=== PATIENT | male | born 1970 | race Caucasian/White ===

== ENCOUNTER 2019-06-28 11:30 | Observation (INO) ==
[2019-06-28] MEDS ORDERED: BUMETANIDE 1 MG in SYRINGE 0 ML IV STA (12:21)
[2019-06-28 12:38] LABS: Basophils # (auto) 0.04 K/uL (0-0.2); Basophils % (auto) 0.6 %; Eosinophils # (auto) 0.22 K/uL (0-0.5); Eosinophils % (auto) 3.5 %; Hematocrit (blood only) 36.9 % (42-52); Hemoglobin 12.3 g/dL (14.0-18.0); Immature Granulocytes # (auto) 0.01 K/uL (0.00-0.02); Immature Granulocytes % (auto) 0.2 %; Lymphocytes # (auto) 0.88 K/uL (1.2-3.4); Lymphocytes % (auto) 14.1 %; Mean Corpuscular Hemoglobin 30.5 pg (25-34); Mean Corpuscular Hgb Conc 33.3 g/dL (32-36); Mean Corpuscular Volume 91.6 fL (80-100); Mean Platelet Volume 11.3 fL (7.4-10.4); Monocytes # (auto) 0.72 K/uL (0.11-0.59); Monocytes % (auto) 11.6 %; Neutrophils # (auto) 4.36 K/uL (1.4-6.5); Platelet Count 217 K/uL (130-400); RDW Coefficient of Variation 12.4 % (11.5-14.5); RDW Standard Deviation 41.8 fL (36.4-46.3); Red Blood Count 4.03 M/uL (4.7-6.1); White Blood Count 6.23 K/uL (4.8-10.8)
[2019-06-28 12:48] LABS: Alanine Aminotransferase 38 U/L (12-78); Albumin Level 3.7 gm/dl (3.4-5.0); Aspartate Aminotransferase 19 U/L (15-37); Blood Urea Nitrogen 12 mg/dl (7-18); Calcium 8.8 mg/dl (8.5-10.1); Carbon Dioxide 30 mmol/L (21-32); Chloride 105 mmol/L (98-107); Creatinine Clr Calc Pharmacy 125.5 ml/min; Est GFR (African American) 99.8; Est GFR (Non-African American) 86.1; Glucose 102 mg/dl (70-99); Potassium 4.4 mmol/L (3.5-5.1); Sodium 139 mmol/L (136-145)
[2019-06-28 12:59] LABS: Albumin Globulin Ratio 1.2 (0.9-2); Alkaline Phosphatase 76 U/L (45-117); Bilirubin,Total 0.6 mg/dl (0.2-1); Globulin 3.1 gm/dl (2.5-4.0); NT Pro B Type Natriuretic Pept 29 pg/ml (0-450); Total Protein 6.8 gm/dl (6.4-8.2); Troponin I < 0.015 ng/ml (0-0.045)
--- NOTE | 2019-06-28 13:19 | XRay Report ---
XR chest 1V portable CLINICAL HISTORY: SOB dyspnea COMPARISON STUDY: No previous studies for comparison. FINDINGS: The bones soft tissues and hemidiaphragms are normal. The cardiomediastinal silhouette is n ormal. The lungs are clear. The pulmonary vasculature is normal. IMPRESSION: Negative chest. The above report was generated using voice recognition software. It may contain grammatical, syntax or spelling errors. Electronically signed by: Rolando Abdul M.D. 06/28/2019 1:18 PM
--- NOTE | 2019-06-28 14:27 | Emergency Department Note ---
Entered by Hakan Swan acting as a scribe for History of Present Illness General Chief complaint: Chest Pain Time Seen by Provider: 06/28/19 12:08 Source: patient History of Present Illness Provider complaint: Shortness of breath Onset (ago): day(s) 5 Location: chest Severity: similar to prior episodes Pain Consistency: + constant and + intermittent Maximum Pain Intensity: 5 Current Pain Intensity: 5 Quality: + other (Swelling) Associated symptoms: + chest pain and + other (Lower extremity swelling) The patient is a 49 year old male who presents to the Emergency Room with complaints of constant shortness of breath that started about 5 days ago. The patient adds that with the shortness of breath he has some chest heaviness that he rates a 7/10 currently. The patient also has had increase swelling in his lower extremities for the past week. The patient has a history of fluid retention but has never had it this bad. The patient was brought to the ED from [facility] via EMS and en route he received Aspirin and Nitro which did not change his symptoms. The patient also received Bumex at the halfway after breakfast, but notes he has only urinated twice since taking it and his urine looked a normal color. The patient denies any history of HI or pulmonary disease. Home Medications Home Medications Medication Instructions Recorded Confirmed Type aspirin 81 mg tablet,delayed 81 mg PO QAM 10/26/18 06/28/19 History release atorvastatin 20 mg tablet 20 mg PO QPM 10/26/18 06/28/19 History albuterol sulfate 2 puff INHALATION TID PRN 06/28/19 06/28/19 History bumetanide 1 mg PO DAILY 06/28/19 06/28/19 History gabapentin 600 mg PO BID 06/28/19 06/28/19 History Allergies Allergy/AdvReac Type Severity Reaction Status Date / Time furosemide Allergy Unknown Unverified 06/28/19 13:42 guaifenesin Allergy Verified 02/28/19 13:40 lisinopril Allergy Unknown Unverified 06/28/19 13:42 nortriptyline Allergy Agitated Verified 02/28/19 13:40 pregabalin [From Lyrica] Allergy swelling Verified 02/28/19 13:40 Past Med/Surg History Medical History Asthma (Chronic) Migraine (Chronic) PTSD (post-traumatic stress disorder) (Chronic) Chronic pain (Chronic) HTN (hypertension) (Chronic) Gastro-esophageal reflux (Chronic) Cigarette smoker two packs a day or less (Chronic) Surgical History History of left knee surgery (Resolved) History of shoulder surgery (Resolved) Family History Other No pertinent family history in first degree relatives Social History Preferred Language: Georgian Visual Impairment: Limited Hearing Ability: Normal Beliefs That Will Affect Care: None Current Living Situation: Other Current Living Situation Comment: [facility] maciel inmate Feels Safe at Home: Yes Smoking Status: Former smoker Tobacco Type: cigarettes ; Cigarettes Per Day: 30 ; Review of Systems See HPI for pertinent positives & negatives. and A total of 10 systems reviewed and were otherwise negative Physical Exam Vital Signs Vital Signs - 24 hr 06/28/19 11:31 06/28/19 11:34 06/28/19 11:35 Temperature 36.7 C Temperature Source Oral Sepsis Recent Fever Within 48 Hours No Sepsis Action Taken by Nursing No Action Required Pulse Rate 83 83 88 Pulse Rate from SpO2 Sensor 83 86 Pulse Rhythm Regular Pulse Strength Normal Respiratory Rate 24 21 18 Respiratory Effort / Characteristics Non-Labored Spontaneous Respiratory Depth Normal Respiratory Pattern Regular Blood Pressure 140/83 140/83 Blood Pressure Mean 102 102 Pulse Oximetry 97 97 97 Oxygen Delivery Method Room Air 06/28/19 12:00 06/28/19 12:01 06/28/19 12:07 Temperature Temperature Source Sepsis Recent Fever Within 48 Hours Sepsis Action Taken by Nursing Pulse Rate 79 89 Pulse Rate from SpO2 Sensor 80 89 Pulse Rhythm Pulse Strength Respiratory Rate 15 9 L Respiratory Effort / Characteristics Respiratory Depth Respiratory Pattern Blood Pressure 133/69 Blood Pressure Mean 90 Pulse Oximetry 97 96 Oxygen Delivery Method Room Air 06/28/19 12:30 06/28/19 13:00 06/28/19 13:30 Temperature Temperature Source Sepsis Recent Fever Within 48 Hours Sepsis Action Taken by Nursing Pulse Rate 82 74 75 Pulse Rate from SpO2 Sensor 82 77 Pulse Rhythm Pulse Strength Respiratory Rate 16 12 17 Respiratory Effort / Characteristics Respiratory Depth Respiratory Pattern Blood Pressure 119/78 110/74 Blood Pressure Mean 91 86 Pulse Oximetry 97 100 Oxygen Delivery Method GENERAL: Patient is in no acute distress. HEENT: No acute trauma, normocephalic atraumatic, mucous membranes moist, no nasal congestion, no scleral icterus. NECK: No stridor, no adenopathy, no meningismus, trachea is midline. LUNGS: Diminished breath sounds bilaterally, no wheezes or rhonchi. HEART: Without murmurs gallops or rubs, regular rate and rhythm. ABDOMEN: Soft, nontender, bowel sounds positive, no hernias, no peritonitis. EXTREMITIES: Moderate bilateral pedal edema. No cyanosis, full range of motion of all the joints without pain or difficulty, no signs for acute trauma. NEUROLOGIC: Oriented x 3, no acute motor or sensory deficits, no focal weakness. SKIN: No rash, no jaundice, no diaphoresis. Course 1210: Past medical records reviewed. The patient was evaluated in room C08, and a complete history and physical examination were performed. I spoke to cardiology, Dr. Rankin, hospitalization was felt warranted. Further cardiac work-up was felt warranted I spoke to the patient and the halfway guards. I did speak with case management. The on-call hospitalist was consulted. Of note, the patient has diuresed significantly from the IV Bumex. Administered Medications Discontinued Medications Bumetanide 1 mg/ Syringe 4 mls @ 4 mls/min IV NOW STA Stop: 06/28/19 12:22 Last Admin: 06/28/19 13:14 Dose: 4 mls/min Documented by: [id number] Medical Decision Making Differential Diagnosis Differential Diagnosis includes: CHF, HI, angina, pneumonia, bronchitis, fluid overload, DVT, renal failure and liver failure, amongst others. Medical Records Attestation: I reviewed the patient's medical records. Home Medications Current Medication List: was personally reviewed by me Laboratory Data Attestation: I reviewed the patient's lab results. Result diagrams: 06/28/19 12:04 06/28/19 12:04 Lab Results 06/28/19 06/28/19 06/28/19 Range/Units 12:04 12:04 12:04 WBC 6.23 (4.8-10.8) K/uL RBC 4.03 L (4.7-6.1) M/uL Hgb 12.3 L (14.0-18.0) g/dL Hct 36.9 L (42-52) % MCV 91.6 (80-100) fL MCH 30.5 (25-34) pg MCHC 33.3 (32-36) g/dL RDW Std Deviation 41.8 (36.4-46.3) fL RDW Coeff of Roberto 12.4 (11.5-14.5) % Plt Count 217 (130-400) K/uL MPV 11.3 H (7.4-10.4) fL Immature Gran % (Auto) 0.2 % Neut % (Auto) 70.0 % Lymph % (Auto) 14.1 % [place] % (Auto) 11.6 % Eos % (Auto) 3.5 % Baso % (Auto) 0.6 % Immature Gran # (Auto) 0.01 (0.00-0.02) K/uL Neut # (Auto) 4.36 (1.4-6.5) K/uL Lymph # (Auto) 0.88 L (1.2-3.4) K/uL [place] # (Auto) 0.72 H (0.11-0.59) K/uL Eos # (Auto) 0.22 (0-0.5) K/uL Baso # (Auto) 0.04 (0-0.2) K/uL PT Cancelled INR Cancelled APTT Cancelled PTT Ratio Cancelled Sodium 139 (136-145) mmol/L Potassium 4.4 (3.5-5.1) mmol/L Chloride 105 (98-107) mmol/L Carbon Dioxide 30 (21-32) mmol/L Anion Gap 4.0 (3-11) BUN 12 (7-18) mg/dl Creatinine 1.03 (0.6-1.4) mg/dl Est Cr Clr Drug Dosing 125.5 ml/min Est GFR ( Amer) 99.8 Est GFR (Non-Af Amer) 86.1 BUN/Creatinine Ratio 12.0 (10-20) Glucose 102 H (70-99) mg/dl Calcium 8.8 (8.5-10.1) mg/dl Magnesium 2.0 (1.8-2.4) mg/dl Total Bilirubin 0.6 (0.2-1) mg/dl AST 19 (15-37) U/L ALT 38 (12-78) U/L Alkaline Phosphatase 76 (45-117) U/L Troponin I < 0.015 (0-0.045) ng/ml NT-Pro-B Natriuret Pep 29 (0-450) pg/ml Total Protein 6.8 (6.4-8.2) gm/dl Albumin 3.7 (3.4-5.0) gm/dl Globulin 3.1 (2.5-4.0) gm/dl Albumin/Globulin Ratio 1.2 (0.9-2) TSH 1.140 (0.300-4.500) uIu/ml Imaging Data Radiologist's Impression: Radiology results as stated below per my review and the radiologist's interpretation: XR chest 1V portable CLINICAL HISTORY: SOB dyspnea COMPARISON STUDY: No previous studies for comparison. FINDINGS: The bones soft tissues and hemidiaphragms are normal. The cardiomediastinal silhouette is normal. The lungs are clear. The pulmonary vasculature is normal. IMPRESSION: Negative chest. The above report was generated using voice recognition software. It may contain grammatical, syntax or spelling errors. Electronically signed by: Rolando Abdul M.D. 06/28/2019 1:18 PM US venous doppler LE BI HISTORY: Pain. Edema. edema COMPARISON STUDY: None. FINDINGS: There is normal compressibility, flow, and augmentation within the bilateral lower extremity deep venous systems. IMPRESSION: No DVT within the right or left lower extremity. The above report was generated using voice recognition software. It may contain grammatical, syntax or spelling errors. Electronically signed by: Rolando Abdul M.D. 06/28/2019 2:56 PM ECG Data Attestation: I personally reviewed and interpreted this ECG as follows: Indication: chest pain and SOB/dyspnea Rate (beats per minute): 87 Rhythm: normal sinus ECG Findings: Other (No ST elevation, No PACs or PVCs, QTC of 440. ) Blood Pressure Blood Pressure Findings: Normal blood pressure MDM Narrative There is no leukocytosis. A mild anemia was noted. The patient had a normal platelet count. There was no significant electrolyte abnormality or kidney failure. No evidence for liver enzyme elevation. The patient appeared to be in a euthyroid state. EKG showed a sinus rhythm, no acute ischemia. Cardiac enzyme testing x1 is not consistent with acute cardiac injury. BNP was not elevated making significant fluid overload/CHF less likely. Chest film did not show evidence for CHF or pneumonia. Bilateral lower extremity ultrasound did not show evidence for DVT. The patient was given IV Bumex, he did diurese nicely from this medication. No additional aspirin was given as he had received this in route. The patient does seem to be resting comfortably. He presents with precordial ch est pain and heaviness. He has been short of breath. I did discuss the case with cardiology, hospitalization for further cardiac work-up was felt warranted. I spoke to the patient and the halfway guards. Case management has been involved. The on-call hospitalist was consulted. At this point, the cause for the chest pain is not clear, further cardiac work-up is warranted. Impression & Plan Chest pain, precordial, Edema, SOB (shortness of breath) Discharge Plan Visit Data Chief Complaint: Chest Pain ED Provider: Bacilio Espinoza Discharge Problem: Chest pain, precordial, Edema, SOB (shortness of breath) Patient Disposition: Admitted As Inpatient Condition: Good Forms Stand Alone Forms: Call Back Authorization, [facility] Prescriptions Prescriptions: No Action aspirin [Adult Aspirin Regimen] 81 mg tablet,delayed release (DR/EC) 81 mg PO QAM RF: 0 atorvastatin 20 mg tablet 20 mg PO QPM RF: 0 gabapentin 600 mg Tablet 600 mg PO BID RF: 0 bumetanide 1 mg Tablet 1 mg PO DAILY RF: 0 albuterol sulfate 90 mcg/actuation Hfa Aerosol Inhaler 2 puff INHALATION TID PRN (Reason: Shortness Of Breath) RF: 0 Referrals Referrals: Michelle LEVI [Primary Care Provider] - Discharge Problem: Edema Qualifiers: Edema type: unspecified Qualified Code(s): R60.9 - Edema, unspecified The scribe's documentation has been prepared under my direction and personally reviewed by me in its entirety. I confirm that the note above accurately ref lects all work, treatment, procedures, and medical decision making performed by me.
--- NOTE | 2019-06-28 14:57 | Ultrasound Report ---
US venous doppler LE BI HISTORY: Pain. Edema. edema COMPARISON STUDY: None. FINDINGS: There is normal compressibility, flow, and augmentation within the bilateral lower extremit y deep venous systems. IMPRESSION: No DVT within the right or left lower extremity. The above report was generated using voice recognition software. It may contain grammatical, syntax or spelling errors. Electronically signed by: Rolando Abdul M.D. 06/28/2019 2:56 PM
--- NOTE | 2019-06-28 16:25 | History & Physical Report ---
Date of Service June 28, 2019 Assessment & Plan (1) Chest pain, precordial: We will follow chest pain protocol. Monitor EKG cardiac enzymes per protocol. Consult cardiology. Present on Admission?: Yes (2) Edema: Add IV Lasix. Check echocardiogram. Present on Admission?: Yes (3) SOB (shortness of breath): DuoNeb per protocol Present on Admission?: Yes (4) Asthma: Continue with home meds. (5) HTN (hypertension): Continue home meds. (6) Gastro-esophageal reflux: Add PPI for GI prophylaxis. (7) Chronic pain: Continue Neurontin. (8) DVT prophylaxis: Add subcu heparin for DVT prophylaxis History of Present Illness Chief Complaint: Chest pain and shortness of breath Primary Care Provider: AMITA Maciel The patient is a 49 year old male who presents to the Emergency Room with complaints of constant shortness of breath that started about 5 days ago. The patient adds that with the shortness of breath he has some chest heaviness that he rates a 7/10 currently. The patient also has had increase swelling in his lower extremities for the past week. The patient has a history of fluid retention but has never had it this bad. The patient was brought to the ED from [facility] via EMS and en route he received Aspirin and Nitro which did not change his symptoms. The [facility] also [facility], but notes he has only urinated twice since taking it and his urine looked a normal color. The patient denies any history of OK or pulmonary disease. The first set EKG and cardiac enzymes is negative. He will be admitted under observation for further evaluation and management. Allergies Allergy/AdvReac Type Severity Reaction Status Date / Time furosemide Allergy Unknown Unverified 06/28/19 13:42 guaifenesin Allergy Verified 02/28/19 13:40 lisinopril Allergy Unknown Unverified 06/28/19 13:42 nortriptyline Allergy Agitated Verified 02/28/19 13:40 pregabalin [From Lyrica] Allergy swelling Verified 02/28/19 13:40 Home Medications Home Medications Medication Instructions Recorded Confirmed Type aspirin 81 mg tablet,delayed 81 mg PO QAM 10/26/18 06/28/19 History release atorvastatin 20 mg tablet 20 mg PO QPM 10/26/18 06/28/19 History albuterol sulfate 2 puff INHALATION TID PRN 06/28/19 06/28/19 History bumetanide 1 mg PO DAILY 06/28/19 06/28/19 History gabapentin 600 mg PO BID 06/28/19 06/28/19 History Past Med/Surg History Medical History Asthma (Chronic) Migraine (Chronic) PTSD (post-traumatic stress disorder) (Chronic) Chronic pain (Chronic) HTN (hypertension) (Chronic) Gastro-esophageal reflux (Chronic) Cigarette smoker two packs a day or less (Chronic) Surgical History History of left knee surgery (Resolved) History of shoulder surgery (Resolved) Family History Other No pertinent family history in first degree relatives Social History Preferred Language: Urdu Visual Impairment: Limited Hearing Ability: Normal Beliefs That Will Affect Care: None Current Living Situation: Other Current Living Situation Comment: [facility]iel inmate Feels Safe at Home: Yes Smoking Status: Former smoker Tobacco Type: cigarettes ; Cigarettes Per Day: 30 ; Review of Systems Review of Systems: All systems reviewed & are unremarkable except as noted in HPI & below Constitutional: as per Subjective / HPI Eyes: as per Subjective / HPI Ear, Nose, Mouth, Throat: as per Subjective / HPI Respiratory: + cough, + chest congestion, + dyspnea and + dyspnea on exertion Cardiovascular: + chest pain, + chest pain at rest, + chest pain with activity, + dyspnea, + dyspnea at rest, + dyspnea on exertion, + orthopnea and + edema Physical Exam Physical Exam: GENERAL : No acute distress EYES: No icterus, gaze conjugate NOSE: No evidence of epistaxis MOUTH: No lesions or candidiasis, mucosa moist NECK: Supple LUNGS: CTA B/L, no wheezes, rales or rhonchi HEART: Regular, rate controlled ABDOMEN: Soft, NT, ND, BS Present EXTREMITIES: LE edema +, pedal pulses intact NEURO: A&OX3 Results & Data Vital Signs (Past 12 Hours) Vital Signs Temp Pulse Resp BP Pulse Ox 06/28/19 15:30 77 18 97 06/28/19 15:13 83 14 122/77 98 06/28/19 15:11 92 H 20 98 06/28/19 13:30 75 17 06/28/19 13:00 74 12 110/74 100 06/28/19 12:30 82 16 119/78 97 06/28/19 12:01 89 9 L 133/69 96 06/28/19 12:00 79 15 97 06/28/19 11:35 98.1 F 88 18 140/83 97 06/28/19 11:34 83 21 97 06/28/19 11:31 83 24 140/83 97 Laboratory Results 06/28/19 12:04 06/28/19 12:04 Diagnostic Findings XR chest 1V portable CLINICAL HISTORY: SOB dyspnea COMPARISON STUDY: No previous studies for comparison. FINDINGS: The bones soft tissues and hemidiaphragms are normal. The cardiomediastinal silhouette is normal. The lungs are clear. The pulmonary vasculature is normal. IMPRESSION: Negative chest. US venous doppler LE BI HISTORY: Pain. Edema. edema COMPARISON STUDY: None. FINDINGS: There is normal compressibility, flow, and augmentation within the bilateral lower extremity deep venous systems. IMPRESSION: No DVT within the right or left lower extremity. PG Care Time/CCT Total # of Minutes Spent Total Time Spent with Patient: Total time spent is greater than 50% in coordination of care (as documented) at patient's floor/unit and/or counseling patient: 60 m (1) Edema Edema type: unspecified Qualified Code(s): R60.9 - Edema, unspecified
[2019-06-28] MEDS ORDERED: MoRPHine SULFATE 2 MG/ML CARP IV PRN (18:35)
[2019-06-28] MEDS ORDERED: NITROGLYCERIN SL 0.4 MG/TAB TAB SL PRN (18:35)
[2019-06-28] MEDS: ALBUT/IPRATROP 3MG/0.5MG NEB 3 ML VIAL NEB SCH (19:43)
[2019-06-28] MEDS: NITROGLYCERIN 2% OINTMENT 30GM TUBE EXT SCH (20:15)
[2019-06-28] MEDS: GABAPENTIN 600 MG TAB PO SCH (20:16)
[2019-06-28] MEDS: PANTOprazole 40 MG TAB PO SCH (20:17)
[2019-06-28] MEDS ORDERED: ATORVASTATIN 20 MG TAB PO SCH (21:00)
[2019-06-28] MEDS ORDERED: ENOXAPARIN INJ 30 MG/0.3 ML SYR SQ SCH (21:00)
[2019-06-28 22:04] LABS: Appearance Urine Clear (Clear); Bilirubin Urine Negative (Negative); Blood Urine Negative (Negative); Color Urine Yellow; Glucose Urine UA Negative (Negative); Ketones Urine Negative (Negative); Leukocyte Esterase Urine Negative (Negative); Nitrite Urine Negative (Negative); Protein Urine Negative (Negative); Specific Gravity Urine 1.019 (1.000-1.030); Urobilinogen Urine Negative (Negative); pH Urine 8.5 (4.5-7.5)
[2019-06-29] MEDS ORDERED: ACETAMINOPHEN 325 MG TAB PO PRN (00:29)
[2019-06-29] MEDS: NITROGLYCERIN 2% OINTMENT 30GM TUBE EXT SCH ×2 (03:17→08:52)
[2019-06-29] MEDS: ALBUT/IPRATROP 3MG/0.5MG NEB 3 ML VIAL NEB SCH ×4 (07:14→18:49)
[2019-06-29] MEDS: GABAPENTIN 600 MG TAB PO SCH (08:51)
[2019-06-29] MEDS: PANTOprazole 40 MG TAB PO SCH (08:52)
[2019-06-29] MEDS ORDERED: ASPIRIN 81 MG ECTAB PO SCH (09:00)
[2019-06-29 09:26] LABS: Hematocrit (blood only) 35.3 % (42-52); Hemoglobin 12.2 g/dL (14.0-18.0); Mean Corpuscular Hemoglobin 31.2 pg (25-34); Mean Corpuscular Hgb Conc 34.6 g/dL (32-36); Mean Corpuscular Volume 90.3 fL (80-100); Mean Platelet Volume 10.4 fL (7.4-10.4); Platelet Count 213 K/uL (130-400); RDW Coefficient of Variation 12.5 % (11.5-14.5); RDW Standard Deviation 41.5 fL (36.4-46.3); Red Blood Count 3.91 M/uL (4.7-6.1); White Blood Count 7.14 K/uL (4.8-10.8)
--- NOTE | 2019-06-29 09:33 | Cardiology Consultation ---
Date of Consultation June 29, 2019 Assessment & Plan (1) Chest pain, precordial: (2) SOB (shortness of breath): (3) Dyslipidemia: (4) Edema: (5) HTN (hypertension): (6) Cigarette smoker two packs a day or less: ASSESSMENT/PLAN: 1. Chest pain: Not likely to be ischemic in origin as it has been present constantly for 1 week with negative cardiac enzymes. LV systolic function is not reduced. Recommend stress echo given risk factors, however this is not likely to be cardiac based on his description and lack of objective findings thus far. 2. Shortness of breath: Etiology uncertain. He does not appear to be in heart failure. His proBNP is only 29. No significant edema currently. No JVD. Stress echo as above. Other workup for shortness of breath as per primary service. 3. Hypertension: Blood pressure adequately controlled. 4. Dyslipidemia: Can continue home statin dose. 5. Tobacco abuse: Smoking cessation. 6. Edema: Only trace edema currently. May be due to significant sodium consumption. It was recommended that he stop adding salt to food and to reduce his overall sodium consumption. 7. Disposition: Plan of care discussed with Dr. Bell, other primary hospitalist service. Please call with any other questions or concerns. Stress echo pending. Thank you for allowing me to participate in the care of your patient. Please call for any other questions or concerns. Sincerely, Oscar Rankin M.D. History of Present Illness Reason for Consultation: Chest pain and shortness of breath Requesting Physician: Dr. Martinez Attending Physician: Ronaldo Harris History of Present Illness Mr. De La Paz is a pleasant 49-year-old gentleman who resides at [facility] and has a history of PTSD, hypertension, dyslipidemia, and tobacco abuse. He states that 6 or 7 years ago he was diagnosed with edema. He was given support stockings and mostly resolved until recently. He had been consuming foods high in sodium content such as ramen noodles but he stop eating them approximately 1 month ago. He continues to add salt to food and enjoys eating a lot of trail mix. He noticed that his legs started swelling again. For the past 1 week he has been short of breath with exertion and also describes orthopnea. He has chest discomfort in the center of his chest described as an elephant sitting on his chest. It is nonradiating. It is nonexertional and also nonpleuritic. The pain has been constant for 1 week without resolution or improvement. He believes that he has gained approximately 30 lb in the past month. He has intermittent diaphoresis at times for the past 2 months. He had near-syncope while climbing a flight of stairs yesterday but denies true syncope. When asked about bleeding, he states that he has a lot of black tarry stool for many years but denies hematochezia. He denies a history of blood transfusion. He states that he is having a difficult time urinating. He feels the urge to urinate but is unable to this morning other than a very small amount. He is questioning if he has prostate issues. He denies palpitations. He states that his edema is much improved since presentation yesterday. He had been given Lasix in the past and had a rash but is tolerating Bumex. He has been given Bumex at [facility] with no significant improvement in his symptoms. He was given Bumex here problem 1 mg IV on presentation. Review of systems: As above. Review of systems otherwise negative/unremarkable. Family history: Paternal uncle with ruptured aorta. He has a half brother with a pacemaker at the age of 30. No known premature CAD. Social history: He has smoked up to 1.5 packs of cigarettes per day for approximately 20 years. Currently smoking 4-5 cigarettes per week. He has not consumed alcohol for 11 years. 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 He is originally from the State of [place]. He is but stays in contact with his ex- who lives in [place]. Three adult children in [place]. He is accompanied today by 2 correctional officers. Allergies Allergy/AdvReac Type Severity Reaction Status Date / Time furosemide Allergy Unknown Unverified 06/28/19 13:42 guaifenesin Allergy Verified 02/28/19 13:40 lisinopril Allergy Unknown Unverified 06/28/19 13:42 nortriptyline Allergy Agitated Verified 02/28/19 13:40 pregabalin [From Lyrica] Allergy swelling Verified 02/28/19 13:40 Home Medications Home Medications Medication Instructions Recorded Confirmed Type aspirin 81 mg tablet,delayed 81 mg PO QAM 10/26/18 06/28/19 History release atorvastatin 20 mg tablet 20 mg PO QPM 10/26/18 06/28/19 History albuterol sulfate 2 puff INHALATION TID PRN 06/28/19 06/28/19 History bumetanide 1 mg PO DAILY 06/28/19 06/28/19 History gabapentin 600 mg PO BID 06/28/19 06/28/19 History Patient History Medical History Dyslipidemia Asthma (Chronic) Migraine (Chronic) PTSD (post-traumatic stress disorder) (Chronic) Chronic pain (Chronic) HTN (hypertension) (Chronic) Gastro-esophageal reflux (Chronic) Cigarette smoker two packs a day or less (Chronic) Surgical History History of left knee surgery (Resolved) History of shoulder surgery (Resolved) Family History Other No pertinent family history in first degree relatives Social History Preferred Language: Serbian Communication Ability: Effective Visual Impairment: Limited Hearing Ability: Normal Registered Safety Engineer Required: No Beliefs That Will Affect Care: None Current Living Situation: Other Current Living Situation Comment: [facility] Other Information That Helps Us Care for You: No Feels Safe at Home: Yes Safety Concerns: Feels Safe At This Time Smoking Status: Former smoker Tobacco Type: cigarettes ; Cigarettes Per Day: 40 ; Do You Dip or Chew Tobacco: No ; Smoking End Date: February 2019 ; Second Hand Exposure: No ; Tobacco Cessation Education Requested by Patient: No Hx Alcohol Use: No Hx Substance Use: No Physical Exam Physical Exam: Gen.: No acute distress. Alert and oriented. HEENT: Anicteric sclera. Neck: No JVD. No bruits. Normal carotid upstrokes bilaterally. Cardiac: PMI was nondisplaced. No ventricular heave. Regular rate and rhythm. Normal S1-S2. No murmurs, rubs, or gallops. Pulmonary: Clear to auscultation bilaterally without wheezes, rales, or rhonchi. Abdomen: Soft, nondistended, with normoactive bowel sounds. Mild tenderness left abdominal quadrants without rebound tenderness. No bruits noted. Extremities: 2+ radial pulses bilaterally. 2+ posterior tibialis pulses bilaterally. Trace bilateral lower extremity edema. No cyanosis. No palpable cords. Psychiatric: Affect appears appropriate. Chest: Nontender to palpation. Results & Data Vital Signs (Past 12 Hours) Vital Signs Temp Pulse Pulse Resp BP Pulse Ox 06/29/19 07:51 36.6 C 92 H 18 103/65 97 06/29/19 07:14 83 16 96 06/29/19 03:11 36.7 C 93 H 20 111/65 97 06/29/19 00:15 88 06/28/19 23:56 36.6 C 96 H 18 108/64 96 Intake & Output 06/27/19 06/28/19 06/29/19 06/30/19 06:59 06:59 06:59 06:59 Intake Total 640 / 640 Output Total 1150 / 1150 375 / 375 Balance -510 / -510 -375 / -375 Weight 113.5 kg Laboratory Results Laboratory Results - last 24 hr 06/28/19 06/28/19 06/28/19 12:04 12:04 12:04 WBC 6.23 RBC 4.03 L Hgb 12.3 L Hct 36.9 L MCV 91.6 MCH 30.5 MCHC 33.3 RDW Std Deviation 41.8 RDW Coeff of Roberto 12.4 Plt Count 217 MPV 11.3 H Immature Gran % (Auto) 0.2 Neut % (Auto) 70.0 Lymph % (Auto) 14.1 Person % (Auto) 11.6 Eos % (Auto) 3.5 Baso % (Auto) 0.6 Immature Gran # (Auto) 0.01 Neut # (Auto) 4.36 Lymph # (Auto) 0.88 L Person # (Auto) 0.72 H Eos # (Auto) 0.22 Baso # (Auto) 0.04 PT Cancelled INR Cancelled APTT Cancelled PTT Ratio Cancelled Sodium 139 Potassium 4.4 Chloride 105 Carbon Dioxide 30 Anion Gap 4.0 BUN 12 Creatinine 1.03 Est Cr Clr Drug Dosing 125.5 Est GFR ( Amer) 99.8 Est GFR (Non-Af Amer) 86.1 BUN/Creatinine Ratio 12.0 Glucose 102 H Calcium 8.8 Magnesium 2.0 Total Bilirubin 0.6 AST 19 ALT 38 Alkaline Phosphatase 76 Troponin I < 0.015 NT-Pro-B Natriuret Pep 29 Total Protein 6.8 Albumin 3.7 Globulin 3.1 Albumin/Globulin Ratio 1.2 TSH 1.140 Urine Color Urine Appearance Urine pH Ur Specific [place] Urine Protein Urine Glucose (UA) Urine Ketones Urine Blood Urine Nitrite Urine Bilirubin Urine Urobilinogen Ur Leukocyte Esterase 06/28/19 06/29/19 06/29/19 21:55 00:08 09:12 WBC 7.14 RBC 3.91 L Hgb 12.2 L Hct 35.3 L MCV 90.3 MCH 31.2 MCHC 34.6 RDW Std Deviation 41.5 RDW Coeff of Roberto 12.5 Plt Count 213 MPV 10.4 Immature Gran % (Auto) Neut % (Auto) Lymph % (Auto) Person % (Auto) Eos % (Auto) Baso % (Auto) Immature Gran # (Auto) Neut # (Auto) Lymph # (Auto) Person # (Auto) Eos # (Auto) Baso # (Auto) PT INR APTT PTT Ratio Sodium Potassium Chloride Carbon Dioxide Anion Gap BUN Creatinine Est Cr Clr Drug Dosing Est GFR ( Amer) Est GFR (Non-Af Amer) BUN/Creatinine Ratio Glucose Calcium Magnesium Total Bilirubin AST ALT Alkaline Phosphatase Troponin I < 0.015 NT-Pro-B Natriuret Pep Total Protein Albumin Globulin Albumin/Globulin Ratio TSH Urine Color Yellow Urine Appearance Clear Urine pH 8.5 H Ur Specific [place] 1.019 Urine Protein Negative Urine Glucose (UA) Negative Urine Ketones Negative Urine Blood Negative Urine Nitrite Negative Urine Bilirubin Negative Urine Urobilinogen Negative Ur Leukocyte Esterase Negative 06/29/19 06/29/19 09:12 09:12 WBC RBC Hgb Hct MCV MCH MCHC RDW Std Deviation RDW Coeff of Roberto Plt Count MPV Immature Gran % (Auto) Neut % (Auto) Lymph % (Auto) Person % (Auto) Eos % (Auto) Baso % (Auto) Immature Gran # (Auto) Neut # (Auto) Lymph # (Auto) Person # (Auto) Eos # (Auto) Baso # (Auto) PT INR APTT PTT Ratio Sodium Pending Potassium Pending Chloride Pending Carbon Dioxide Pending Anion Gap Pending BUN Pending Creatinine Pending Est Cr Clr Drug Dosing Pending Est GFR ( Amer) Pending Est GFR (Non-Af Amer) Pending BUN/Creatinine Ratio Pending Glucose Pending Calcium Pending Magnesium Pending Total Bilirubin AST ALT Alkaline Phosphatase Troponin I Pending NT-Pro-B Natriuret Pep Total Protein Albumin Globulin Albumin/Globulin Ratio TSH Urine Color Urine Appearance Urine pH Ur Specific [place] Urine Protein Urine Glucose (UA) Urine Ketones Urine Blood Urine Nitrite Urine Bilirubin Urine Urobilinogen Ur Leukocyte Esterase Diagnostic Findings Telemetry personally reviewed: Sinus rhythm. No arrhythmia. Echo 06/29/2019: Images personally reviewed. Low-normal LV systolic function. EF 50-55%. No significant valvular abnormalities. ECGs personally reviewed: ECG 06/28/2019 11:32 a.m.: Sinus rhythm 87 bpm. ECG 06/29/2019: Sinus rhythm 80 bpm. Lower extremity Doppler 06/28/2019: No DVT bilaterally. Chest x-ray 06/28/2019: No acute abnormality per Radiology. Medications Administered Current Inpatient Medications Acetaminophen (Tylenol) 650 mg PO Q4H PRN PRN Reason: Pain Stop: 07/29/19 00:28 Last Admin: 06/29/19 00:38 Dose: 650 mg Documented by: Albuterol (Duoneb) 3 ml NEB QIDR KASSY Stop: 07/28/19 18:59 Last Admin: 06/29/19 07:14 Dose: 3 ml Documented by: Aspirin (Ecotrin Ectab) 81 mg PO QAM [facility] Stop: 07/29/19 08:59 Last Admin: 06/29/19 08:52 Dose: 81 mg Documented by: Atorvastatin Calcium (Lipitor) 20 mg PO QPM KASSY Stop: 07/28/19 20:59 Last Admin: 06/28/19 20:16 Dose: 20 mg Documented by: Enoxaparin Sodium (Lovenox) 30 mg SQ Q24H KASSY Stop: 07/28/19 18:34 Last Admin: 06/28/19 20:15 Dose: 30 mg Documented by: Gabapentin (Neurontin) 600 mg PO BID [facility] Stop: 07/28/19 20:59 Last Admin: 06/29/19 08:51 Dose: 600 mg Documented by: Morphine Sulfate (Morphine Sulfate) 2 mg IV Q30M PRN PRN Reason: Chest Pain Stop: 07/12/19 18:34 Nitroglycerin (Nitro-Bid 2%) 1 inch EXT Q6H KASSY Stop: 07/28/19 18:34 Last Admin: 06/29/19 08:52 Dose: 1 inch Documented by: Nitroglycerin (Nitrostat) 0.4 mg SL UD PRN PRN Reason: Chest Pain Stop: 07/28/19 18:34 Pantoprazole Sodium (Protonix) 40 mg PO BID KASSY Stop: 07/28/19 20:59 Last Admin: 06/29/19 08:52 Dose: 40 mg Documented by: PG Care Time/CCT Total # of Minutes Spent Total Time Spent with Patient: Total time spent is greater than 50% in coordination of care (as documented) at patient's floor/unit and/or counseling patient: (1) Edema Edema type: unspecified Qualified Code(s): R60.9 - Edema, unspecified
[2019-06-29 09:53] LABS: BUN Creatinine Ratio 14.1 (10-20); Calcium 9.2 mg/dl (8.5-10.1); Creatinine Clr Calc Pharmacy 120.5 ml/min; Est GFR (African American) 96.4; Est GFR (Non-African American) 83.2; Magnesium 2.2 mg/dl (1.8-2.4); Potassium 3.7 mmol/L (3.5-5.1)
[2019-06-29 10:36] LABS: Ferritin 40.9 ng/ml (8-388)
[2019-06-29 10:42] LABS: Folate (Folic Acid) 21.87 ng/ml (>5.38)
[2019-06-29] MEDS ORDERED: TAMSULOSIN HCL 0.4 MG CAP PO SCH (13:30)
[2019-06-29] MEDS ORDERED: cephALEXin 500 MG CAP PO SCH (13:30)
[2019-06-29] MEDS ORDERED: OPTIRAY 320 125ml IV PRN (13:34)
--- NOTE | 2019-06-29 13:57 | CT Scan Report ---
CT ANGIOGRAPHY THE CHEST WITHOUT AND WITH CONTRAST CLINICAL HISTORY: Atypical chest pain, shortness of breath. POSSIBLE AORTIC DISSECTION. COMPARISON STUDY: Chest x-ray dated 06/28/2019 TECHNIQUE: Unenhanced images of the chest were obtained. Following the IV administration of 119 mL of [id number]-320, CT angiography of the thorax was performed from the thoracic inlet to the lung bases. I mages are reviewed in the axial, sagittal, and coronal planes. IV contrast was administered without c omplication. A dose lowering technique was utilized adhering to the principles of ALARA. MIP images were acquired. CT DOSE: 1363.41 mGy.cm FINDINGS: Thyroid: Imaged portions of the thyroid gland are normal in appearance. Thoracic aorta: Noncontrast images reveal no evidence of acute aortic hematoma. Postcontrast images r eveal no evidence of thoracic aortic aneurysm or dissection. Pulmonary vasculature: The pulmonary trunk is normal in caliber. There are no central filling defects identified to suggest pulmonary embolus. Note that this examination was not protocoled for the evalu ation of pulmonary emboli. HEART: The heart is normal in size. There are minimal coronary artery calcifications. Lungs and pleural spaces: There is no pneumothorax. There is pulmonary emphysema with subpleural bleb s at both lung apices. There are no pleural effusions. There is no focal pulmonary consolidation. Mediastinum: There is no evidence of pathologic mediastinal lymphadenopathy Latrice: Right hilar lymph nodes are the upper limits of normal in size. Axilla: There is no evidence of pathologic axillary lymphadenopathy Upper abdomen: There are subcentimeter left lobe hepatic hypodensities. The spleen appears prominent but is incompletely visualized. Skeletal structures: There are no lytic or blastic osseous lesions. IMPRESSION: 1. No acute intrathoracic findings 2. No evidence of aortic aneurysm or dissection 3. No evidence of focal pulmonary consolidation. No evidence of pneumothorax. No pleural effusions id entified. Electronically signed by: Gaurang Ferguson M.D. 06/29/2019 1:56 PM
--- NOTE | 2019-06-29 18:13 | Discharge Summary ---
Date of Service date of admission - June 28, 2019 date of discharge - June 29, 2019 Admission HPI Per Admitting Provider The patient is a 49 year old male who presents to the Emergency Room with complaints of constant shortness of breath that started about 5 days ago. The patient adds that with the shortness of breath he has had some chest heaviness that he rates a 7/10 currently. The patient also has had increase swelling in his lower extremities for the past week. The patient has a history of fluid retention but has never had it this bad. The patient was brought to the ED from [facility] via EMS and en route he received Aspirin and Nitro which did not change his symptoms. The patient also received Bumex at the assisted after breakfast, but notes he has only urinated twice since taking it and his urine looked a normal color. The patient denies any history of MN or pulmonary disease. The first set EKG and cardiac enzymes is negative. He will be admitted under observation for further evaluation and management. Principal Diagnosis chest pain/dyspnea - resolved; stress test negative Discharge Exam Constitutional well developed and well nourished; no acute distress and no altered mental status ENMT external ear and nose normal, oropharynx normal Respiratory normal respiratory effort, lungs clear to auscultation Cardiovascular Rate/Rhythm: regular rate and regular rhythm Heart Sounds: normal S1 and normal S2; no murmur Vessels: posterior tibial pulses present and dorsalis pedis pulses present; no JVD Extremities: no edema Gastrointestinal (Abdomen) normal bowel sounds, soft, nontender, no hepatosplenomegaly Psychiatric A+Ox3, euthymic affect Genitourinary prostate exam - stool grossly brown; heme NEGATIVE; no rectal masses. Prostate boggy, mildly enlarged, VERY TENDER to palpation. No nodules. Discharge Data Allergies Allergy/AdvReac Type Severity Reaction Status Date / Time furosemide Allergy Unknown Unverified 06/28/19 13:42 guaifenesin Allergy Verified 02/28/19 13:40 lisinopril Allergy Unknown Unverified 06/28/19 13:42 nortriptyline Allergy Agitated Verified 02/28/19 13:40 pregabalin [From Lyrica] Allergy swelling Verified 02/28/19 13:40 Consultations cardiology - Oscar Rankin MD Ordered Studies 1. echocardiogram - * EF 50-55% * normal valvular function * normal PA pressures 2. exercise stress echocardiogram NEGATIVE for ischemia 3. CTA dissection protocol - FINDINGS: Thyroid: Imaged portions of the thyroid gland are normal in appearance. Thoracic aorta: Noncontrast images reveal no evidence of acute aortic hematoma. Postcontrast images reveal no evidence of thoracic aortic aneurysm or dissection. Pulmonary vasculature: The pulmonary trunk is normal in caliber. There are no central filling defects identified to suggest pulmonary embolus. Note that this examination was not protocoled for the evaluation of pulmonary emboli. HEART: The heart is normal in size. There are minimal coronary artery calcifications. Lungs and pleural spaces: There is no pneumothorax. There is pulmonary emphysema with subpleural blebs at both lung apices. There are no pleural effusions. There is no focal pulmonary consolidation. Mediastinum: There is no evidence of pathologic mediastinal lymphadenopathy Latrice: Right hilar lymph nodes are the upper limits of normal in size. Axilla: There is no evidence of pathologic axillary lymphadenopathy Upper abdomen: There are subcentimeter left lobe hepatic hypodensities. The spleen appears prominent but is incompletely visualized. Skeletal structures: There are no lytic or blastic osseous lesions. IMPRESSION: 1. No acute intrathoracic findings 2. No evidence of aortic aneurysm or dissection 3. No evidence of focal pulmonary consolidation. No evidence of pneumothorax. No pleural effusions identified. 4. b/l LE venous duplex NEGATIVE for DVT Hospital Course (1) Chest pain, precordial: Troponins were negative x 3. Telemetry was normal. Echocardiogram showed low-normal EF but normal wall motion. CTA chest, dissection protocol, was negative for dissection as well as large pulmonary emboli (see report). He was seen in consult by cardiology and underwent exercise stress echocardiogram that was negative for ischemia. The exact cause of his presenting chest pain & dyspnea was uncertain. If chest pain episodes were to recur then advise repeat consultation with cardiology for consideration of more invasive testing. (2) SOB (shortness of breath): This resolved while hospitalized. Exact etiology was uncertain. Ischemic work-up for CAD was negative. CTA chest did not reveal any intra-thoracic pathology. He had no wheezing to suggest asthma exacerbation. I question if indeed he had had some mild volume overload that resolved itself with oral diuretics at the assisted. By the time of admission, however, all imaging studies of the chest did NOT reveal any pulmonary edema or other pathology. Furthermore his BNP was VERY low at <30. Would continue to monitor for repeat symptoms at the assisted. (3) Acute prostatitis: Patient c/o multiple lower urinary tract symptoms including hesitancy, nocturia, dysuria, weak stream, etc. MICKI was c/w prostatitis. U/a was normal but despite such a urine culture was dispatched. Bladder scan showed he was emptying the bladder despite the symptoms reported. He will take a 4-week course of keflex. He will also take flomax once daily to help with urinary flow. Recommend f/u with urology as outpatient if symptoms fail to improve with the above. (4) Iron deficiency anemia: Ferritin level was 40. Fecal occult blood was negative. B12/folate were normal. Hb was about 12. Exact cause of iron deficiency was uncertain. Recommended iron supplementation twice daily for 3 months. While supplementing iron I recommended referral back to GI for consideration of endoscopic evaluation. Of note - patient had a colonoscopy in his mid-30s which revealed MULTIPLE colonic polyps. Thus, strongly advise repeat colonoscopy +/- EGD. (5) Edema: resolved. exact cause uncertain. no evidence of CHF, liver disease, kidney disease, or hypothyroidism. may use bumex PRN back at assisted for this. (6) Asthma: no exacerbation while here. (7) HTN (hypertension): All BPs were normal while hospitalized. (8) Gastro-esophageal reflux: PPI twice daily. Due to iron deficiency recommend GI referral for consideration of EGD (and colonoscopy). (9) Chronic pain: Continue Neurontin. Has been on this for several years; thus, doubt it is the cause of recent edema. (10) History of colonic polyps: multiple, on colonoscopy in his mid-30s. GI referral after discharge for repeat colonoscopy. Total Time Total Time Spent Total Time Spent (In Minutes): 40 Total Time Includes: Examination of the Patient, Discharge Planning, Medication Reconciliation and Communication With Other Providers Discharge Plan Discharge Items [facility]position[facility] Reason For Visit: CHEST PAIN; shortness of breath Discharge Diagnosis: 1. chest pain - no evidence of heart attack, aortic dissection or other intra- thoracic process. NEGATIVE stress test. NORMAL echocardiogram. NORMAL CAT scan of chest (dissection protocol). 2. shortness of breath - resolved. Uncertain cause. Resolved fluid retention?? 3. suspected acute prostatitis. Treatment - 4 weeks of antibiotics recommended. 4. iron deficiency and history of colonic polyps - outpatient colonoscopy advised. Condition on Discharge: Good Activity: Resume your previous activity Non-emergency contact: Primary Care Provider Call non-emergency contact if: you have any medication questions, your symptoms worsen, your pain is not controlled, your pain is worsening and you have a fever Follow-up/Referrals: Michelle LEVI [Primary Care Provider] - Diet: Heart Healthy Addtl Attending Provider Instructions: Mr De La Paz was seen and treated for chest pain and shortness of breath. He underwent troponins x 3 (negative), echocardiogram (normal), stress test (negative/normal), and CTA chest dissection protocol (negative for dissection, pneumonia, CHF, etc). The exact cause of his chest pain and shortness of breath was uncertain. He reported edema of his legs prior to admission. However, he had no edema while here and did not have edema of the lungs on chest x-ray or CTA scan. Thus, it was NOT suspected he had had CHF. There was also no evidence of liver disease or kidney disease. TSH (thyroid level) was normal. He had significant complaints of painful urination, hesitancy, poor stream, etc. Prostate exam was consistent with prostatitis. He also had blood work evidence of iron deficiency. He had a colonoscopy at ~age 37 which showed numerous polyps. Outpatient colonoscopy advised [facility]. His stool, however, was heme negative while here. Other recommendations - 1. flomax (tamsulosin) 0.4mg daily x 28 days 2. cephalexin 500mg twice daily for 28 days - for prostatitis 3. would use bumex (bumetanide) 1mg NEEDED for swelling/edema of the legs; would only use PRN 4. potassium supplement 10meq daily NEEDED when he takes the bumex; again would only use PRN 5. ferrous sulfate 325mg twice daily for 3 months Follow-up -- 1. urology - 2 weeks - if patient continues with lower urinary tract symptoms 2. gastroenterology - [facility] - for colonoscopy 3. pulmonary - first available - if shortness of breath continues Pending Studies at Discharge: No Stand-Alone Forms: Call Back Authorization, [facility] Skilled Items Patient informed of condition?: Yes DNR: No Discharge Level of Care: Other Communicable Disease: No Discharge Prognosis: Stable Lines: None Urinary Catheter: No Medications and DC Order Prescriptions: New tamsulosin 0.4 mg Capsule 0.4 mg PO QAM Qty: 30 RF: 0 cephalexin 500 mg Capsule 500 mg PO BID 28 Days Qty: 56 RF: 0 pantoprazole 40 mg Tablet,Delayed Release (Dr/Ec) 40 mg PO BID Qty: 60 RF: 2 potassium chloride 10 mEq tablet extended release 10 meq PO DAILY PRN (Reason: when you take bumex) Qty: 30 RF: 2 ferrous sulfate 325 mg (65 mg iron) tablet 325 mg PO BID Qty: 60 RF: 2 Continued aspirin [Adult Aspirin Regimen] 81 mg tablet,delayed release (DR/EC) 81 mg PO QAM RF: 0 atorvastatin 20 mg tablet 20 mg PO QPM RF: 0 gabapentin 600 mg Tablet 600 mg PO BID RF: 0 albuterol sulfate 90 mcg/actuation Hfa Aerosol Inhaler 2 puff INHALATION TID PRN (Reason: Shortness Of Breath) RF: 0 Changed bumetanide 1 mg Tablet 1 mg PO DAILY PRN (Reason: Edema) Qty: 30 RF: 2 Admission Data Admit Date/Time: 06/28/19 16:28 Attending Provider: Ronaldo Harris Admit Provider: Mikel Martinez Primary Care Provider: Michelle LEVI Other Providers: Mikel Martinez ; Vipul Rankin Other Interventions: Discharge Summary Assessment (RN) Last Done: 06/29/19 17:07 DC Date/Time DO NOT enter until pt leaves facility: 06/29/19 18:58
== END 2019-06-29 18:58 ==
LOC: ED 11:30 → 2S 11:30 → SUATTDRO 16:28 → 2S 17:51